=== PATIENT | male | born 1990 | race Caucasian/White ===

== ENCOUNTER 2020-06-27 06:36 | Emergency (ER) | payer MEDICAID, SELFPAY ==
[~2020-06-27] VITALS: Ht 182.9 cm; Wt 83.6 kg
[2020-06-27 06:41] VITALS: BP 123/73
--- NOTE | 2020-06-27 06:52 | NUR ---
Pt here for sore throat, reports woke up and very painful. No relief. Pt informed Rn that he also had bad smell coming from mouth.Unknow if he had a fever. Pt reports that he also has pain in his ears and has nasal congestion.
[2020-06-27] MEDS ORDERED: DEXAMETHASONE 4 MG TABLET ONE (07:13)
--- NOTE | 2020-06-27 07:18 | NUR ---
Pt medicated per emar.
[2020-06-27] MEDS ORDERED: DEXAMETHASONE 4 MG TABLET PO ONE (07:30)
--- NOTE | 2020-06-27 08:04 | NUR ---
Patient/Caregiver given discharge instructions and they have confirmed that they understand the instructions. Patient ambulatory with steady gait.
== END 2020-06-27 08:05 | disposition home or self-care (01) ==
LOC: ED 07:29
DX: B34.9 Viral infection, unspecified (principal); J02.8 Acute pharyngitis due to other specified organisms; R05 Cough; R09.81 Nasal congestion; F17.210 Nicotine dependence, cigarettes, uncomplicated
CPT/HCPCS: 87081; 87880; 99283